=== PATIENT | female | born 1945 | race Caucasian/White ===

== ENCOUNTER 2017-05-31 15:23 | Observation (INO) | payer OTHER, BC ==
[2017-05-31 15:58] VITALS: BMI 20.7
--- NOTE | 2017-05-31 16:02 | PDOC ---
Rapid Medical Evaluation Time Seen by Provider: 05/31/17 15:54 Medical Evaluation: Allergies Allergy/AdvReac Type Severity Reaction Status Date / Time sulfamethoxazole Allergy Rash Verified 05/31/17 15:54 [From Bactrim] trimethoprim [From Bactrim] Allergy Rash Verified 05/31/17 15:54 05/31/17 15:55 Pt presents to the ED: fell on left buttocks and lower back, pain with movement , also c/o left sided headache with movement, Pt on brief exam: vss, eomi, perrla Pt ordered for: head ct Pt to proceed to the ED Discharge Disposition - Diagnosis Fall - Referrals - Patient Instructions - Post Discharge Activity
--- NOTE | 2017-05-31 17:19 | PDOC ---
History of Present Illness - General Chief Complaint: Injury Stated Complaint: FALL, HEADACHES Time Seen by Provider: 05/31/17 15:54 - History of Present Illness Initial Comments: 05/31/17 17:30 The patient is a 71 year old female with a history of arthritis who presents to the ER for evaluation following a fall. The patient was initially evaluated in fast track and then up triaged to the main ED after head ct demonstrated a thing acute subdural hematoma along the left tentorium as read by our radiologist. The patient reports that she slipped down the stairs and landed on her bottom. She denies head trauma during the fall, but noted that when she fell she experienced a painful pressure on the left sided of her head. She notes that she took 2 aspirin prior to her presentation to the ED for her headache. She denies any LOC or other injuries. She denies SOB, chest pain, abdominal pain, nausea, vomiting, or changes with urination or bowel movements. Past History - Past Medical History Allergies/Adverse Reactions: Allergies Allergy/AdvReac Type Severity Reaction Status Date / Time sulfamethoxazole Allergy Rash Verified 05/31/17 15:54 [From Bactrim] trimethoprim [From Bactrim] Allergy Rash Verified 05/31/17 15:54 Home Medications: Ambulatory Orders Alendronate Na [Fosamax] 70 mg PO Q7D 05/31/17 Celecoxib [Celebrex] 200 mg PO DAILY 05/31/17 Anemia: No Asthma: No Cancer: No Cardiac Disorders: No CVA: No COPD: No CHF: No Dementia: No Diabetes: No GI Disorders: Yes (DIVERTICULOSIS) Disorders: No HTN: No Hypercholesterolemia: No Liver Disease: No Seizures: No Thyroid Disease: No Other medical history: OSTEOPOROSIS - Surgical History Abdominal Surgery: No Appendectomy: No Cardiac Surgery: No Cholecystectomy: No Lung Surgery: No Neurologic Surgery: No Orthopedic Surgery: Yes (Left Wrist) - Suicide/Smoking/Psychosocial Hx Smoking History: Former smoker Have you smoked in the past 12 months: No Information on smoking cessation initiated: No Hx Alcohol Use: No Drug/Substance Use Hx: No Substance Use Type: None Hx Substance Use Treatment: No Review of Systems - Review of Systems Comments:: 05/31/17 17:39 Constitutional: No fevers, chills, fatigue, malaise HEENT: No Rhinorrhea, nasal congestion, visual changes Cardiovascular: No chest pain, syncope, palpitations, lightheadedness Respiratory: No Cough, SOB, Hemoptysis, Gastrointestinal: No Abdominal pain, Nausea, Vomiting, Constipation, Diarrhea, Melena Genitourinary: No Dysuria, Frequency, Urgency, Hesitancy, Hematuria, Flank pain Musculoskeletal: Lower back pain. No Myalgia, arthralgia Skin: No rashes, bruising, pallor Neurologic: Headache. No Dizziness, Numbness, Weakness, or Tingling Psychiatric: No Hallucinations. No SI or HI *Physical Exam - Vital Signs Last Vital Signs Temp Pulse Resp BP Pulse Ox 99.2 F 80 19 143/82 96 05/31/17 15:54 05/31/17 15:54 05/31/17 15:54 05/31/17 15:54 05/31/17 15:54 - Physical Exam Comments: 05/31/17 17:40 General Appearance: Nourished. No Apparent Distress HEENT: EOMI, ANANTH. No Pharyngeal Erythema, Tonsillar Exudate, Tonsillar Erythema Neck: No Cervical Lymphadenopathy or C-spine tenderness. Full range of motion Respiratory/Chest: Lungs Clear, Normal Breath Sounds. No Crackles, Rales, Rhonchi, Wheezing Cardiovascular: Regular Rhythm, Regular Rate. No Murmur, Gallops, Rubs Gastrointestinal/Abdominal: Normal Bowel Sounds, Soft. No Guarding, Rebound, Tenderness Musculoskeletal: No midline spinal tenderness to palpation. No CVA Tenderness Extremity: Normal Capillary Refill Integumentary: Normal Color, Dry, Warm Neurologic: flat finisher II-XII NML intact, Fully Oriented, Alert, Normal Mood/Affect, Normal Response, Motor Strength 5/5. Normal Finger to Nose and Heel to [facility] ED Treatment Course - LABORATORY CBC & Chemistry Diagram: 05/31/17 17:40 05/31/17 17:40 - RADIOLOGY Radiology Studies Ordered: Category Date Time Status CERVICAL SPINE CT W/O CONTR [CT] Stat CT Scan 05/31/17 17:17 Ordered Medical Decision Making - Medical Decision Making 05/31/17 17:41 The patient is a 71 year old female with a history of arthritis who presents to the ER for evaluation following a fall. Given that the patient has a subdural hematoma on head ct, the patient will require observation admission for further management. We will obtain a cbc, cmp, coags, cervical ct and lumbar plain films to evaluate further. We will continue to monitor and reassess. 05/31/17 20:13 cbc, cmp, coags are unremarkable. Cervical ct is unremarkable as read by our radiologist. We discussed the case with Dr. Kenny with neurosurgery who agrees with observation admission and repeat head ct tomorrow. We called Dr. Caceres's service who informed us that the hospitalist service was covering for them. We discussed the cause with the hospitalist service who accepted the patient for admission. *DC/Admit/Observation/Transfer Diagnosis at time of Disposition: Subdural hematoma Fall Qualifiers: Encounter type: initial encounter Qualified Code(s): W19.XXXA - Unspecified fall, initial encounter - Discharge Dispostion Condition at time of disposition: Stable Admit: Yes - Referrals Referrals: Major Wilcox MD [Primary Care Provider] - - Patient Instructions - Post Discharge Activity
--- NOTE | 2017-05-31 17:30 | PDOC ---
Attending Attestation - Resident Resident Name: Sabas Narayan - ED Attending Attestation I have performed the following: I have examined & evaluated the patient, The case was reviewed & discussed with the resident, I agree w/resident's findings & plan, Exceptions are as noted - HPI HPI: 05/31/17 17:28 71-year-old female sent over from fast track after an outpatient CAT scan revealed a small left subdural status post a fall down a flight of stairs -She stated she did not hit her head. The mechanism was a slip on an upper stare and then she fell directly on her buttocks and then went down the stairs. -At the time she said she felt pain in the left side of her head CAT scan shows with the acute subdural hematoma noted along the left tentorium --Transferred to the main ER for workup and admission - Physicial Exam PE: 05/31/17 17:30 slender alert,ambulatory 71 yo female who states she only has left sided head pain if she jumps and does significant movement her head hurts EXAM: head :no trauma is evident,no hematoma ,no scalp laceration eyes martín eomi neck :no cervical vertebral tenderness musculoskeletal - no thoracic vertebral tenderness, +tenderness about L5 vertebra cvs :[id number] lungs cta b/l ext :no deformities,no tenderness abd: soft,nontender neuro :axox3,ambulatory buttocks- no bruising evident skin no rashes - Medical Decision Making 05/31/17 23:45 ct scan head ++ small ACUTE SUBDURAL BLEED case discussed with neurosurgery Dr Kenny and pt will be admitted to med/surg -no surgical intervention at this time <Radha Gonsalves - Last Filed: 05/31/17 23:47> Heart Score/ECG Review - ECG Intrepretation Comment:: 05/31/17 17:59:47 EKG Interpretation: Normal sinus rhythm Possible left atrial enlargement Vent rate 70 bpm <Erin Teran - Last Filed: 05/31/17 18:11>
[2017-05-31 17:52] LABS: BASO % 0.6 % (0-2.0); EOS % 1.7 % (0-4.5); HEMATOCRIT 41.2 % (32.4-45.2); HEMOGLOBIN 13.8 GM/dL (10.7-15.3); LYMPH % 29.3 % (8-40); MCH 32.7 pg (25.7-33.7); MCHC 33.6 g/dl (32.0-36.0); MEAN CELL VOLUME 97.5 fl (80-96); MEAN PLT VOLUME 8.3 fl (7.5-11.1); MONO % 9.8 % (3.8-10.2); NEUT % 58.6 % (42.8-82.8); PLATELET COUNT 235 K/MM3 (134-434); RBC 4.23 M/mm3 (3.60-5.2); RDW 13.1 % (11.6-15.6); WHITE BLOOD COUNT 6.4 K/mm3 (4.0-10.0)
[2017-05-31 17:59] LABS: INR 0.98 (0.82-1.09); PROTHROMBIN TIME (PATIENT) 11.1 SEC (9.98-11.88)
[2017-05-31 18:02] LABS: ACTIVATED PTT 32.7 SECONDS (26.9-34.4)
[2017-05-31 18:12] LABS: ALBUMIN 4.1 g/dl (3.4-5.0); ANION GAP 7 (8-16); BLOOD UREA NITROGEN 18 mg/dL (7-18); CALCIUM 11.1 mg/dL (8.5-10.1); CHLORIDE 108 mmol/L (98-107); CO2 24 mmol/L (21-32); GLUCOSE,RANDOM 99 mg/dL (74-106); POTASSIUM 4.1 mmol/L (3.5-5.1); SODIUM 139 mmol/L (136-145)
[2017-05-31 18:18] LABS: ALK PHOS 78 U/L (45-117); BILIRUBIN,TOTAL 0.6 mg/dL (0.2-1.0); CREATININE 0.7 mg/dL (0.55-1.02); SGOT/AST 26 U/L (15-37); SGPT/ALT 27 U/L (12-78); TOT PROT 7.3 g/dl (6.4-8.2)
--- NOTE | 2017-05-31 21:20 | HP ---
Admitting History and Physical - Primary Care Physician PCP: Thanh Cruz - Admission Chief Complaint: s/p Mechanical Fall, Headache History of Present Illness: This is a 71 y/o woman with a past medical history of Osteoarthritis, Osteopenia , Diverticulosis. Who presents to the ED with a headache, s/p mechanical fall x 1 day. The patient reports slipping down her stairs landing on her buttocks. Patient reports feeling a painful pressure to the left mid parietal aspect. She denies head trauma, or LOC. She reports taking Asa for the MENDOZA with some relief. Patient denies blurred vision, dizziness, numbness or tingling, N/V/D. History Source: Patient Limitations to Obtaining History: No Limitations - Past Medical History Gastrointestinal: Yes: Diverticulosis Musculoskeletal: Yes: Osteoarthritis Endocrine: Yes: Osteopenia - Smoking History Smoking history: Former smoker Have you smoked in the past 12 months: No - Alcohol/Substance Use Hx Alcohol Use: No History of Substance Use: reports: None - Social History Usual Living Arrangement: Yes: Alone ADL: Independent History of Recent Travel: No Home Medications - Allergies Allergies/Adverse Reactions: Allergies Allergy/AdvReac Type Severity Reaction Status Date / Time sulfamethoxazole Allergy Rash Verified 05/31/17 15:54 [From Bactrim] trimethoprim [From Bactrim] Allergy Rash Verified 05/31/17 15:54 - Home Medications Home Medications: Ambulatory Orders Alendronate Na [Fosamax] 70 mg PO Q7D 05/31/17 Celecoxib [Celebrex] 200 mg PO DAILY 05/31/17 Review of Systems - Review of Systems Constitutional: reports: No Symptoms Eyes: reports: No Symptoms HENT: reports: No Symptoms Neck: reports: No Symptoms Cardiovascular: reports: No Symptoms Respiratory: reports: No Symptoms Gastrointestinal: reports: No Symptoms Genitourinary: reports: No Symptoms Breasts: reports: No Symptoms Reported Musculoskeletal: reports: Other (gluteal pain) Neurological: reports: Headache Endocrine: reports: No Symptoms Hematology/Lymphatic: reports: No Symptoms Psychiatric: reports: No Symptoms Physical Examination Vital Signs: Vital Signs Temperature 99.2 F 05/31/17 15:54 Pulse Rate 80 05/31/17 15:54 Respiratory Rate 19 05/31/17 15:54 Blood Pressure 143/82 05/31/17 15:54 O2 Sat by Pulse Oximetry (%) 99 05/31/17 18:04 Constitutional: Yes: Well Nourished, No Distress, Calm Eyes: Yes: WNL, Conjunctiva Clear, EOM Intact, PERRL HENT: Yes: WNL, Atraumatic, Normocephalic Neck: Yes: WNL, Supple, Trachea Midline Cardiovascular: Yes: WNL, Regular Rate and Rhythm, S1, S2 Respiratory: Yes: WNL, Regular, CTA Bilaterally Gastrointestinal: Yes: WNL, Normal Bowel Sounds, Soft ...Rectal Exam: Yes: Deferred Renal/: Yes: WNL Breast(s): Yes: WNL Musculoskeletal: Yes: WNL Extremities: Yes: WNL Edema: No Peripheral Pulses WNL: Yes Integumentary: Yes: WNL Neurological: Yes: WNL, Alert, Oriented, Cran Nerves II-XII Intact ...Motor Strength: WNL, LUE, LLE, RUE, RLE Psychiatric: Yes: WNL, Alert, Oriented Labs: CBC, BMP 05/31/17 17:40 05/31/17 17:40 Laboratory Results - last 24 hr 05/31/17 05/31/17 05/31/17 17:40 17:40 17:40 WBC 6.4 RBC 4.23 Hgb 13.8 Hct 41.2 MCV 97.5 H MCH 32.7 MCHC 33.6 RDW 13.1 Plt Count 235 MPV 8.3 Neutrophils % 58.6 Lymphocytes % 29.3 Monocytes % 9.8 Eosinophils % 1.7 Basophils % 0.6 PT with INR 11.10 INR 0.98 PTT (Actin FS) 32.7 Sodium 139 Potassium 4.1 Chloride 108 H Carbon Dioxide 24 Anion Gap 7 L BUN 18 Creatinine 0.7 Creat Clearance w eGFR > 60 Random Glucose 99 Calcium 11.1 H Total Bilirubin 0.6 AST 26 ALT 27 Alkaline Phosphatase 78 Total Protein 7.3 Albumin 4.1 Blood Type Antibody Screen 05/31/17 21:45 WBC RBC Hgb Hct MCV MCH MCHC RDW Plt Count MPV Neutrophils % Lymphocytes % Monocytes % Eosinophils % Basophils % PT with INR INR PTT (Actin FS) Sodium Potassium Chloride Carbon Dioxide Anion Gap BUN Creatinine Creat Clearance w eGFR Random Glucose Calcium Total Bilirubin AST ALT Alkaline Phosphatase Total Protein Albumin Blood Type O POSITIVE Antibody Screen Negative Intake & Output 05/29/17 05/30/17 05/31/1718 23:59 23:59 23:59 23:59 Weight 53.07 kg Imaging - Results Chest X-ray: Image Reviewed X-ray: Report Reviewed (Neck- no fx), Image Reviewed (LSP) Cat Scan: Report Reviewed (CT head- Subdural Hematoma, left tentorium), Image Reviewed EKG: Image Reviewed Problem List - Problems (1) Subdural hematoma Assessment/Plan: - s/p mechanical fall - CT Head- subdural hematoma, left tentorium - Neurosurgeon notified by ED attending, is following - CT Head- repeat tomorrow - Neuro checks Q4h - Monitor vitals - Cardiac monitoring - HOB 45 degrees - Monitor CBC, BMP Code(s): I62.00 - NONTRAUMATIC SUBDURAL HEMORRHAGE, UNSPECIFIED (2) Fall Assessment/Plan: - See above - Fall Precautions Code(s): W19.XXXA - UNSPECIFIED FALL, INITIAL ENCOUNTER Qualifiers: Encounter type: initial encounter Qualified Code(s): W19.XXXA - Unspecified fall, initial encounter (3) Osteoarthritis Assessment/Plan: - Tylenol prn Code(s): M19.90 - UNSPECIFIED OSTEOARTHRITIS, UNSPECIFIED SITE (4) Osteopenia Assessment/Plan: - See above Code(s): M85.80 - OTH DISRD OF BONE DENSITY AND STRUCTURE, UNSPECIFIED SITE (5) DVT prophylaxis Assessment/Plan: - OOB - SCDs Code(s): [id number] - Assessment/Plan This is a 71 y/o woman with a PMHx of: OA, Osteopenia. Placed in Tele Observation for Subdural Hematoma secondary to Mechanical Fall. Plan: FEN - D51/2NS@42ml/hr - Replete lytes prn - NPO Code Status: Full Code Dispo: Tele Observation Visit type - Emergency Visit Emergency Visit: Yes ED Registration Date: 05/31/17 Care time: The patient presented to the Emergency Department on the above date and was hospitalized for further evaluation of their emergent condition. - New Patient This patient is new to me today: Yes Date on this admission: 05/31/17 - Critical Care Critical Care patient: No
[2017-06-01] MEDS ORDERED: DOCUSATE SODIUM 100 MG CAPSULE (FP) PO STA (01:00)
[2017-06-01] MEDS ORDERED: DOCUSATE SODIUM 100 MG CAPSULE (FP) PO ONE (01:01)
[2017-06-01 07:39] LABS: HEMATOCRIT 41.2 % (32.4-45.2); HEMOGLOBIN 13.5 GM/dL (10.7-15.3); MCH 32.2 pg (25.7-33.7); MCHC 32.8 g/dl (32.0-36.0); MEAN PLT VOLUME 7.9 fl (7.5-11.1); PLATELET COUNT 205 K/MM3 (134-434); RBC 4.21 M/mm3 (3.60-5.2); RDW 13.1 % (11.6-15.6); WHITE BLOOD COUNT 4.6 K/mm3 (4.0-10.0)
[2017-06-01 07:52] LABS: INR 1.06 (0.82-1.09)
[2017-06-01 07:54] LABS: ACTIVATED PTT 31.1 SECONDS (26.9-34.4)
[2017-06-01] MEDS ORDERED: ACETAMINOPHEN 325 MG TABLET (FP) PO PRN (08:07)
[2017-06-01] MEDS ORDERED: DEXTROSE 5%-0.45% SALINE 1,000 ML IV SCH (08:15)
--- NOTE | 2017-06-01 12:46 | PN ---
Progress Note (short form) - Note Progress Note: Patient had a mechanical fall at home 2 days ago falling down rug covered steps and landing on her buttock. She noticed a left sided headache after the fall exacerbated by movement. She took some aspirins and called my office and although there was no direct blow to her head or period of unconsciousness I rec : ER visit. At the ER CT scans of the head and cervical spine were completed. A small subdural hematoma was noted on the left side. neurosurgery was called and admission was advised. Patient currently has no nausea headache double vision tinnitus. At times there may be a fleeting soreness in the parietal part of her head on the left side. also of note was that her calcium was 11.1. Other electrolytes within normal limits. Vital signs stable. On exam: Vital Signs Temp 97.8 F 06/01/17 10:00 Pulse 72 06/01/17 10:00 Resp 16 06/01/17 10:00 BP 124/61 06/01/17 10:00 Pulse Ox 95 06/01/17 10:00 Intake & Output 05/31/17 06/01/17 06/01/17 23:59 11:59 23:59 Weight 117 lb Other: Voiding Method Toilet Height 5 ft 3 in Body Mass Index (BMI) 20.7 Weight Measurement Method Est/Stated by Patient patient is alert she grimaces lifts her eyebrows and smiles normally Finger-pointing to nose left and right hand normal Pupils equal Neck supple No ecchymosis on her scalp was noted heart regular Chest clear Extremities no edema One tiny linear contusion left tibia Abnormal Lab Results 05/31/17 05/31/17 06/01/17 17:40 17:40 07:09 MCV 97.5 H 98.0 H PT with INR Chloride 108 H Anion Gap 7 L Calcium 11.1 H 06/01/17 07:09 MCV PT with INR 12.00 H Chloride Anion Gap Calcium impression: Recurrent fall at home Small subdural left side Hypercalcemia to be investigated further Diverticulosis Osteopenia GERD Hyperlipidemia plan: Neurosurgical evaluation Parathormone and calcium level to be repeated herfollowup vital signs
--- NOTE | 2017-06-01 15:11 | EKG ---
Test Reason : Blood Pressure : / mmHG Vent. Rate : 070 BPM Atrial Rate : 070 BPM P-R Int : 170 ms QRS Dur : 088 ms QT Int : 374 ms P-R-T Axes : 077 -02 062 degrees QTc Int : 403 ms NORMAL SINUS RHYTHM POSSIBLE LEFT ATRIAL ENLARGEMENT BORDERLINE ECG WHEN COMPARED WITH ECG OF 22-APR-2004 12:04, QUESTIONABLE CHANGE IN QRS DURATION Confirmed by Jose Miguel Zavala MD ([id number]) on 06/01/2017 3:11:37 PM Referred By: Confirmed By:Jose Miguel Zavala MD
--- NOTE | 2017-06-01 15:39 | CONSULT ---
Consult - text type - Consultation Consultation Note: Neurosurgery Consultation Carmen Peng is a 71 year old female who fell while on carpeted stairs yesterday. She did not strike her head and had no Loss of Consciousness. She landed on her backside and is a bit sore from this. She has a history of chronic back pain with some radiation. These pains are not worsened by this incident. Plain films of the Lumbar spine do not reveal any clear compression fracture. There is a Grade 1 spondylolisthesis of L5 on S1 with possible bilateral spondylolysis. This appears stable. She has moderate degenerative changes in the Cervical spine on CT including some osteophytes which encroach upon the transverse foramen and may compress the vertebral artery. These changes are also chronic appearing. Head CT demonstrates a 2-3 mm subdural hematoma layering upon the Left Tentorium. There is no mass effect and this is benign appearing. The patient is completely awake, alert and interactive with no Neurological deficits. Agree with plans for follow-up head CT and then discharge with postdischarge followup with Dr. Wilcox (PCP). I have given patient contact information and would be happy to answer any questions or concerns should they develop, but will not schedule routine follow- up appointment. The patient verbalized an understanding of this information and agrees with this plan of care.
--- NOTE | 2017-06-01 16:56 | PN ---
Progress Note (short form) - Note Progress Note: Repeat Head CT reviewed and appears stable. Patient may be discharged from Neurosurgery standpoint.
[2017-06-01] MEDS ORDERED: DOCUSATE SODIUM 100 MG CAPSULE (FP) PO SCH (22:00)
[2017-06-02 07:06] LABS: HEMATOCRIT 41.1 % (32.4-45.2); HEMOGLOBIN 13.4 GM/dL (10.7-15.3); LYMPH % 37.6 % (8-40); MCH 32.2 pg (25.7-33.7); MCHC 32.5 g/dl (32.0-36.0); MEAN CELL VOLUME 98.8 fl (80-96); MEAN PLT VOLUME 8.3 fl (7.5-11.1); MONO % 10.8 % (3.8-10.2); NEUT % 45.6 % (42.8-82.8); PLATELET COUNT 199 K/MM3 (134-434); RBC 4.16 M/mm3 (3.60-5.2); RDW 13.4 % (11.6-15.6); WHITE BLOOD COUNT 4.3 K/mm3 (4.0-10.0)
[2017-06-02 07:36] LABS: ANION GAP 6 (8-16); BLOOD UREA NITROGEN 13 mg/dL (7-18); CALCIUM 8.9 mg/dL (8.5-10.1); CHLORIDE 111 mmol/L (98-107); CO2 25 mmol/L (21-32); GLUCOSE,RANDOM 97 mg/dL (74-106); MAGNESIUM 2.4 mg/dL (1.8-2.4); POTASSIUM 4.4 mmol/L (3.5-5.1); SODIUM 142 mmol/L (136-145)
[2017-06-02 07:38] LABS: CREATININE 0.5 mg/dL (0.55-1.02); PHOSPHOROUS 2.2 mg/dL (2.5-4.9)
[2017-06-02 13:36] VITALS: BP 102/65; PULSE 84; TEMP 98.2
--- NOTE | 2017-06-02 18:57 | DS ---
Physical Examination Vital Signs: Vital Signs Temperature 98.2 F 06/02/17 09:00 Pulse Rate 84 06/02/17 09:00 Respiratory Rate 18 06/02/17 09:00 Blood Pressure 102/65 06/02/17 09:00 O2 Sat by Pulse Oximetry (%) 97 06/02/17 08:00 Constitutional: Yes: Calm Eyes: Yes: Conjunctiva Clear Cardiovascular: Yes: WNL Respiratory: Yes: WNL Gastrointestinal: Yes: WNL Edema: No Neurological: Yes: Alert, Oriented (no headache this morning) Labs: CBC, BMP 06/02/17 06:30 06/02/17 06:30 Discharge Summary Reason For Visit: SUBDURAL HEMATOMA/FALL acute subdural hematoma Fall at home (acute) Osteopenia Diverticulosis Acute hypercalcemia Procedures: Principal: emergency CAT scan of the head with repeat Other Procedures: CAT scan of cervical spinean x-ray of lumbosacral spine. Neurosurgical consultation Hospital Course: followup lab was done with repeat calcium normal Followup visit neurosurgeon ; patient has permission to go home Discharge recommendations written and the patient will receive a copy before discharge Condition: Stable - Instructions Diet, Activity, Other Instructions: resume previous diet and activity. Follow up with Dr Wilcox next week No heavy lifting for 1 week No Celebrex, Aspirin, Motrin or fish oil until office visit. Fosamax restart next week. Referrals: Wilmer Kenny MD, [facility] [Staff Physician] - Major Wilcox MD [Primary Care Provider] - Disposition: HOME - Home Medications Comprehensive Discharge Medication List: Ambulatory Orders Acetaminophen [Tylenol .Regular Strength -] 650 mg PO Q6H PRN tablet 06/02/17
== END 2017-06-02 10:48 | disposition home or self-care (01) ==
LOC: JER 15:23 → JERFT 15:23 → JERBED 21:25 → J4S 06-01 20:56
PROVIDERS: ADMIT Internal Medicine; ATTEND Internal Medicine
PROC: 3E0337Z Introduction of Electrolytic and Water Balance Substance into Peripheral Vein, Percutaneous Approach (ICD-10-PCS; principal; 2017-05-31)
DX: I62.00 Nontraumatic subdural hemorrhage, unspecified (principal); M19.90 Unspecified osteoarthritis, unspecified site; M85.80 Other specified disorders of bone density and structure, unspecified site; Z87.891 Personal history of nicotine dependence; Z88.2 Allergy status to sulfonamides; W10.8XXA Fall (on) (from) other stairs and steps, initial encounter; Y93.89 Activity, other specified; Y92.008 Other place in unspecified non-institutional (private) residence as the place of occurrence of the external cause; M43.17 Spondylolisthesis, lumbosacral region
CPT/HCPCS: 36415; 70450-TC; 71046-TC; 72100-TC; 72125-TC; 80048; 80053; 82310; 83735; 83970; 84100; 85025; 85027; 85610; 85730; 86850; 86900; 86901; 93005; 93010; 99285-25; G0378

== ENCOUNTER 2018-02-09 16:10 | Emergency (ER) | payer OTHER, BC ==
[2018-02-09] MEDS ORDERED: BENZOIN/ALOE VERA/STORAX/TOLU 58 ML BOTTLE ONE (16:35)
[2018-02-09] MEDS ORDERED: BENZOIN/ALOE VERA/STORAX/TOLU 58 ML BOTTLE TP ONE (16:47)
[2018-02-09] MEDS ORDERED: DIPHTH,PERTUSS(ACELL),TET 0.5 ML DISP.SYRIN IM ONE (16:47)
--- NOTE | 2018-02-09 16:48 | PDOC ---
History of Present Illness - History of Present Illness Initial Comments: The patient is a 72 year old female woman with a PMHx of Osteoarthritis, Osteopenia, and Diverticulosis, presenting with superficial left thumb laceration. Patient states that she had painters over and they were just finishing up. She states that she went to reach for something and was holding plastic hangers when it slipped slicing the proximal dorsal side of her left thumb. She states that she is left handed and is concerned whether she will be able to swim and play tennis tomorrow. Denies any numbness or tingling in her thumb. Social Hx: former smoker (over 40 years ago) Allergies: sulfamethoxazole [from Bactrim] (rash); trimethoprim [from Bactrim] ( rash) <Erin Teran - Last Filed: 02/09/18 16:58> - History of Present Illness Initial Comments: 02/09/18 16:54 Physical exam: Alert and oriented no acute distress cheerful and cooperative Afebrile vital signs normal Left thumb: 5 mm laceration of the ulnar aspect of the thumb, mid proximal phalanx, oblique. No bleeding. Capillary refill intact. No distal sensory deficit. Full range of motion of the IP joint against resistance Impression: Laceration, appears superficial, no nerve or tendon injury. Plan: Exploration and repair. <Tevin López - Last Filed: 02/09/18 17:08> - General Chief Complaint: Injury Stated Complaint: LEFT THUMB LACERATION Time Seen by Provider: 02/09/18 16:15 Past History <Erin Teran - Last Filed: 02/09/18 16:58> - Past Medical History Anemia: No Asthma: No Cancer: No Cardiac Disorders: No CVA: No COPD: No CHF: No Dementia: No Diabetes: No GI Disorders: Yes (DIVERTICULOSIS) Disorders: No HTN: No Hypercholesterolemia: No Liver Disease: No Seizures: No Thyroid Disease: No - Surgical History Abdominal Surgery: No Appendectomy: No Cardiac Surgery: No Cholecystectomy: No Lung Surgery: No Neurologic Surgery: No Orthopedic Surgery: Yes (Left Wrist) - Immunization History Immunization Up to Date: Yes - Suicide/Smoking/Psychosocial Hx Smoking History: Former smoker Have you smoked in the past 12 months: No If you are a former smoker, when did you quit?: 40 YEARS AGO Information on smoking cessation initiated: No Hx Alcohol Use: No Drug/Substance Use Hx: No Substance Use Type: None Hx Substance Use Treatment: No <Tevin López - Last Filed: 02/09/18 17:08> - Past Medical History Allergies/Adverse Reactions: Allergies Allergy/AdvReac Type Severity Reaction Status Date / Time sulfamethoxazole Allergy Rash Verified 02/09/18 16:11 [From Bactrim] trimethoprim [From Bactrim] Allergy Rash Verified 02/09/18 16:11 Home Medications: Ambulatory Orders Alendronate Sodium/Vitamin D3 [Fosamax Plus D 70 mg-5,600 Iu vIT d] 1 each PO Q7D 02/09/18 Celecoxib [Celebrex -] 100 mg PO DAILY 02/09/18 Review of Systems - Review of Systems Comments:: CONSTITUTIONAL: Absent: fever, no chills, no fatigue EYES: Absent: visual changes ENT: Absent: ear pain, no sore throat CARDIOVASCULAR: Absent: chest pain, no palpitations RESPIRATORY: Absent: cough, no SOB GI: Absent: abdominal pain, no nausea, no vomiting, no constipation, no diarrhea GENITOURINARY: Absent: dysuria, no frequency, no hematuria MUSCULOSKELETAL: Absent: back pain, no arthralgia, no myalgia SKIN: Present: superficial laceration to proximal posterior left thumb. Absent: rash <Erin Teran - Last Filed: 02/09/18 16:58> *Physical Exam - Vital Signs Last Vital Signs Temp Pulse Resp BP Pulse Ox 98.5 F 77 20 122/70 97 02/09/18 16:10 02/09/18 16:10 02/09/18 16:10 02/09/18 16:10 02/09/18 16:10 <Erin Teran - Last Filed: 02/09/18 16:58> - Vital Signs Last Vital Signs Temp Pulse Resp BP Pulse Ox 98.5 F 77 20 122/70 97 02/09/18 16:10 02/09/18 16:10 02/09/18 16:10 02/09/18 16:10 02/09/18 16:10 <Tevin López - Last Filed: 02/09/18 17:08> ED Treatment Course - Medications Given in the ED: ED Medications Discontinued Medications Generic Name Dose Route Start Last Admin Trade Name Gerard PRN Reason Stop Dose Admin Benzoin 1 applic 02/09/18 16:47 02/09/18 16:56 Benzoin Compound Tincture - TP 02/09/18 16:48 1 applic ONCE ONE Administration Diphtheria/Tetanus/Acell Pertussis 0.5 ml 02/09/18 16:47 02/09/18 16:54 Boostrix - IM 02/09/18 16:48 0.5 ml ONCE ONE Administration <Erin Teran - Last Filed: 02/09/18 16:58> Medical Decision Making - Medical Decision Making 02/09/18 16:56 Repair of laceration Wound was thoroughly scrubbed with saline and explored. Only the epidermis is involved. There are no deep punctures or lacerations. No exposed structures. Wound edges were naturally approximated, but Steri-Strips were applied to maintain closure after application of a small amount of bacitracin. The wound remained well closed and 2 x 2 gauze, as well as tube gauze were applied for a dressing. Wound care suctions were given. Follow-up when necessary. No pain or other distress upon discharge. <Tevin López - Last Filed: 02/09/18 17:08> *DC/Admit/Observation/Transfer - Attestations Scribe Attestion: 02/09/18 17:00 Documentation prepared by Erin Teran, acting as emergency medical tech for Tevin Alegre MD. <Erin Teran - Last Filed: 02/09/18 16:58> - Discharge Dispostion Decision to Admit order: No <Tevin López - Last Filed: 02/09/18 17:08> Diagnosis at time of Disposition: Laceration of thumb Qualifiers: Encounter type: initial encounter Damage to nail status: without damage Foreign body presence: without foreign body Laterality: left Qualified Code(s): S61.012A - Laceration without foreign body of left thumb without damage to nail , initial encounter - Discharge Dispostion Disposition: HOME Condition at time of disposition: Improved - Patient Instructions Printed Discharge Instructions: DI for Laceration Repair Steri-Strips
[2018-02-09 17:04] VITALS: BP 122/70; PULSE 77; TEMP 98.5; BMI 20.7
== END 2018-02-09 17:02 | disposition home or self-care (01) ==
LOC: FER 16:10
PROC: 3E0234Z Introduction of Serum, Toxoid and Vaccine into Muscle, Percutaneous Approach (ICD-10-PCS; principal; 2018-02-09)
DX: S61.012A Laceration without foreign body of left thumb without damage to nail, initial encounter (principal); Z87.891 Personal history of nicotine dependence
CPT/HCPCS: 90715; 99281-25

== ENCOUNTER 2021-02-10 12:25 | Inpatient (IN) | payer OTHER, BC ==
[2021-02-10 13:07] LABS: INR 1.13 (0.82-1.09); PROTHROMBIN TIME (PATIENT) 12.6 SEC (10.2-13.0)
[2021-02-10 13:13] LABS: BASO % 1.6 % (0-2.0); EOS % 0.2 % (0-4.5); HEMATOCRIT 37.6 % (32.4-45.2); HEMOGLOBIN 12.9 GM/dl (10.7-15.3); MCH 33.2 pg (25.7-33.7); MCHC 34.1 g/dl (32.0-36.0); MEAN CELL VOLUME 97.3 fl (80-96); MEAN PLT VOLUME 7.8 fl (7.5-11.1); MONO % 7.3 % (3.8-10.2); NEUT % 80.9 % (42.8-82.8); PLATELET COUNT 336 10^3/uL (134-434); RBC 3.87 M/mm3 (3.60-5.2); WHITE BLOOD COUNT 14.9 K/mm3 (4.0-10.8)
[2021-02-10 13:18] LABS: ALBUMIN 3.8 g/dl (3.4-5.0); CALCIUM 9.8 mg/dl (8.5-10); CREATININE 0.9 mg/dl (0.55-1.3); TOT PROT 6.7 g/dl (6.4-8.2)
[2021-02-10] MEDS ORDERED: SODIUM CHLORIDE 0.9% 500 ML INFUS.BAG IV ONE ×2 (13:33→14:31)
[2021-02-10 15:59] LABS: HEMATOCRIT 33.4 % (32.4-45.2); HEMOGLOBIN 11.1 GM/dl (10.7-15.3); MCHC 33.2 g/dl (32.0-36.0); MEAN CELL VOLUME 99.6 fl (80-96); MEAN PLT VOLUME 7.8 fl (7.5-11.1); PLATELET COUNT 289 10^3/uL (134-434); RBC 3.36 M/mm3 (3.60-5.2); WHITE BLOOD COUNT 14.1 K/mm3 (4.0-10.8)
[2021-02-10 16:10] LABS: CALCIUM 8.8 mg/dl (8.5-10); CREATININE 0.7 mg/dl (0.55-1.3)
[2021-02-10] MEDS ORDERED: ACETAMINOPHEN 325 MG TABLET (FP) PO PRN ×2 (21:19→21:21)
[2021-02-10] MEDS ORDERED: ACETAMINOPHEN 325 MG TABLET (FP) PO SCH (22:00)
[2021-02-10] MEDS ORDERED: traMADol HCL 50 MG TABLET PO PRN (22:00)
[2021-02-10] MEDS ORDERED: ONDANSETRON *ODT* 4 MG TABLET ONE (23:50)
[2021-02-10] MEDS ORDERED: HEPARIN NA (PORCINE) 5,000 UNITS/ML 1ML VIAL ONE (23:50)
[2021-02-10] MEDS: HEPARIN NA (PORCINE) 5,000 UNITS/ML 1ML VIAL SQ SCH (23:55)
[2021-02-10] MEDS: ONDANSETRON *ODT* 4 MG TABLET SL SCH (23:56)
[2021-02-11 04:50] VITALS: BMI 20.6
[2021-02-11] MEDS: ONDANSETRON *ODT* 4 MG TABLET SL SCH ×3 (06:00→21:14)
[2021-02-11 07:52] LABS: BASO % 0.3 % (0-2.0); EOS % 0.5 % (0-4.5); HEMATOCRIT 31.9 % (32.4-45.2); HEMOGLOBIN 11.1 GM/dL (10.7-15.3); LYMPH % 14.7 % (8-40); MCH 33.6 pg (25.7-33.7); MCHC 34.8 g/dl (32.0-36.0); MEAN CELL VOLUME 96.7 fl (80-96); MONO % 9.1 % (3.8-10.2); NEUT % 75.4 % (42.8-82.8); PLATELET COUNT 274 10^3/uL (134-434); RBC 3.29 M/mm3 (3.60-5.2); RDW 13.5 % (11.6-15.6); WHITE BLOOD COUNT 9.9 K/mm3 (4.0-10.0)
[2021-02-11 08:02] LABS: BLOOD UREA NITROGEN 9.6 mg/dL (7-18); CALCIUM 8.7 mg/dL (8.5-10.1); MAGNESIUM 2.2 mg/dL (1.8-2.4)
[2021-02-11 08:05] LABS: CREATININE 0.5 mg/dL (0.55-1.3)
[2021-02-11] MEDS: HEPARIN NA (PORCINE) 5,000 UNITS/ML 1ML VIAL SQ SCH ×2 (09:49→21:14)
[2021-02-11] MEDS: FAMOTIDINE 20 MG TABLET PO SCH (09:49)
[2021-02-11] MEDS: ACETAMINOPHEN 325 MG TABLET (FP) PO PRN (11:30)
[2021-02-11] MEDS ORDERED: CASIRIVIMAB/IMDEVIMAB 10 ML in SODIUM CHLORIDE 100 ML IVPB ONE (11:30)
[2021-02-11 13:11] LABS: N-TERMINAL BNP 128.9 pg/ml (5-450)
[2021-02-11] MEDS ORDERED: PT OWN MED DRAWER 7, Y5N ONE ×2 (14:44→20:49)
[2021-02-11] MEDS: POLYETHYLENE GLYCOL (HEALTHYLAX) 3350 17 GM PACKET PO SCH (21:15)
[2021-02-12] MEDS ORDERED: PT OWN MED DRAWER 7, Y5N ONE (05:59)
[2021-02-12] MEDS: ONDANSETRON *ODT* 4 MG TABLET SL SCH ×2 (06:05→14:26)
[2021-02-12 07:24] LABS: BASO % 0.7 % (0-2.0); EOS % 2.2 % (0-4.5); HEMATOCRIT 32.9 % (32.4-45.2); HEMOGLOBIN 11.4 GM/dL (10.7-15.3); LYMPH % 20.7 % (8-40); MCH 33.9 pg (25.7-33.7); MCHC 34.7 g/dl (32.0-36.0); MEAN CELL VOLUME 97.9 fl (80-96); MEAN PLT VOLUME 7.2 fl (7.5-11.1); MONO % 11.4 % (3.8-10.2); PLATELET COUNT 304 10^3/uL (134-434); RBC 3.37 M/mm3 (3.60-5.2); RDW 13.3 % (11.6-15.6); WHITE BLOOD COUNT 6.5 K/mm3 (4.0-10.0)
[2021-02-12 08:08] LABS: CALCIUM 9.3 mg/dL (8.5-10.1)
[2021-02-12 08:09] LABS: ALBUMIN 2.9 g/dl (3.4-5.0); BLOOD UREA NITROGEN 9.7 mg/dL (7-18); MAGNESIUM 2.3 mg/dL (1.8-2.4)
[2021-02-12 08:12] LABS: CREATININE 0.5 mg/dL (0.55-1.3)
[2021-02-12 08:13] LABS: BILIRUBIN,TOTAL 0.4 mg/dL (0.2-1)
[2021-02-12] MEDS: FAMOTIDINE 20 MG TABLET PO SCH (10:01)
[2021-02-12] MEDS: HEPARIN NA (PORCINE) 5,000 UNITS/ML 1ML VIAL SQ SCH (10:01)
[2021-02-12] MEDS: POLYETHYLENE GLYCOL (HEALTHYLAX) 3350 17 GM PACKET PO SCH (10:01)
[2021-02-12] MEDS: ACETAMINOPHEN 325 MG TABLET (FP) PO PRN (10:02)
[2021-02-12 12:13] VITALS: BP 123/52; PULSE 75; TEMP 98.3
== END 2021-02-12 16:51 | disposition home or self-care (01) | DRG 178 ==
LOC: FER 12:25 → J4W 02-11 03:20
PROVIDERS: ADMIT Internal Medicine
DX: U07.1 COVID-19 (principal); E87.1 Hypo-osmolality and hyponatremia; R11.2 Nausea with vomiting, unspecified; R19.7 Diarrhea, unspecified; K59.03 Drug induced constipation; T40.2X5A Adverse effect of other opioids, initial encounter; T40.605A Adverse effect of unspecified narcotics, initial encounter; K21.9 Gastro-esophageal reflux disease without esophagitis; M81.0 Age-related osteoporosis without current pathological fracture; R62.7 Adult failure to thrive
CPT/HCPCS: 36415; 71045-TC-FY; 80048; 80053; 82272; 82550; 82728; 83615; 83735; 83880; 84100; 85025; 85027; 85379; 85610; 86140; 86769; 86850; 86900; 86901; 87045; 87046; 87177; 87205; 87209; 87324; 87449; 93005; 93970-TC; 99285-25; C9803; J1644; Q0162; Q0240; U0003; U0005

== ENCOUNTER 2021-05-19 15:15 | Observation (INO) | payer OTHER, BC ==
[2021-05-19 15:50] VITALS: TEMP 97.8; BMI 20.3
[2021-05-19 18:53] LABS: BASO % 0.6 % (0-2.0); EOS % 2.5 % (0-4.5); HEMATOCRIT 39.8 % (32.4-45.2); HEMOGLOBIN 13.6 GM/dL (10.7-15.3); LYMPH % 38.1 % (8-40); MCH 32.9 pg (25.7-33.7); MCHC 34.1 g/dl (32.0-36.0); MEAN CELL VOLUME 96.5 fl (80-96); MEAN PLT VOLUME 7.8 fl (7.5-11.1); NEUT % 48.8 % (42.8-82.8); PLATELET COUNT 279 10^3/uL (134-434); RBC 4.12 M/mm3 (3.60-5.2); WHITE BLOOD COUNT 5.8 K/mm3 (4.0-10.0)
[2021-05-19 19:08] LABS: CHLORIDE 107 mmol/L (98-107); SODIUM 138 mmol/L (136-145)
[2021-05-19 19:10] LABS: CALCIUM 10.3 mg/dL (8.5-10.1)
[2021-05-19 19:11] LABS: ANION GAP 7 MMOL/L (8-16); BLOOD UREA NITROGEN 16.1 mg/dL (7-18); CO2 24 mmol/L (21-32); GLUCOSE,RANDOM 86 mg/dL (74-106)
[2021-05-19 19:14] LABS: CREATININE 0.6 mg/dL (0.55-1.3); SGOT/AST 25 U/L (15-37); SGPT/ALT 27 U/L (13-61)
[2021-05-19 19:15] LABS: BILIRUBIN,TOTAL 0.3 mg/dL (0.2-1); TOT PROT 7.2 g/dl (6.4-8.2)
[2021-05-19 19:16] LABS: ALK PHOS 97 U/L (45-117)
[2021-05-19 23:24] VITALS: BP 138/62; PULSE 65
[2021-05-20 00:29] LABS: CHOLESTEROL 242 mg/dL (50-200); TRIGLYCERIDES 96 mg/dL (0-150)
[2021-05-20 00:30] LABS: LDL CHOLESTEROL (ONLY SJRH) 110 mg/dL (5-100)
[2021-05-20 00:32] LABS: HDL CHOLESTEROL 101 mg/dL (40-60)
== END 2021-05-20 00:32 | disposition home or self-care (01) ==
LOC: JER 15:15 → JERBED 17:32
PROVIDERS: ADMIT Hospitalist; ATTEND Hospitalist
DX: F80.1 Expressive language disorder (principal); U07.1 COVID-19; M85.9 Disorder of bone density and structure, unspecified; M19.90 Unspecified osteoarthritis, unspecified site; Z88.1 Allergy status to other antibiotic agents; Z88.2 Allergy status to sulfonamides; Z96.653 Presence of artificial knee joint, bilateral; Z79.82 Long term (current) use of aspirin; Z87.891 Personal history of nicotine dependence
CPT/HCPCS: 36415; 70450-TC; 71045-TC-FY; 80053; 80061; 82550; 83036; 84484; 85025; 93005; 93010; 99285-25; C9803; G0378; U0003; U0005

== ENCOUNTER 2021-10-23 04:35 | Day surgery (SDC) | payer OTHER, BC ==
[2021-10-22 09:56] VITALS: BMI 20.2
[2021-10-23 09:24] VITALS: TEMP 98.2
[2021-10-23 09:51] VITALS: BP 116/52; PULSE 71
== END 2021-10-23 10:42 | disposition home or self-care (01) ==
LOC: JASU-ENDO 04:35
PROVIDERS: ATTEND Internal Medicine Gastroenterology
PROC: 0DJD8ZZ Inspection of Lower Intestinal Tract, Via Natural or Artificial Opening Endoscopic (ICD-10-PCS; principal; 2021-10-23 10:15)
DX: Z12.11 Encounter for screening for malignant neoplasm of colon (principal); K57.30 Diverticulosis of large intestine without perforation or abscess without bleeding; K64.8 Other hemorrhoids